=== PATIENT | female | born 2000 | race Two or more races ===

== ENCOUNTER 2022-08-09 12:14 | Emergency (ER) | payer OTHER ==
[~2022-08-09] VITALS: Ht 160 cm; Wt 54.7 kg
== END 2022-08-09 15:54 | disposition home or self-care (01) ==
LOC: ER 12:14
DX: S62.306A Unspecified fracture of fifth metacarpal bone, right hand, initial encounter for closed fracture (principal); W55.32XA Struck by other hoof stock, initial encounter; Y93.9 Activity, unspecified; Y92.9 Unspecified place or not applicable; Y99.9 Unspecified external cause status

== ENCOUNTER 2022-08-17 07:24 | Outpatient (CLI) | payer OTHER | END 2022-08-17 07:35 | disposition home or self-care (01) | LOC: RAD 07:24 | PROVIDERS: ATTEND Orthopaedic Surgery | DX: S62.346A Nondisplaced fracture of base of fifth metacarpal bone, right hand, initial encounter for closed fracture (principal); S00.83XA Contusion of other part of head, initial encounter ==